=== PATIENT | female | born 1985 | race Caucasian/White ===

== ENCOUNTER 2021-09-22 21:06 | Inpatient (IN) | payer OTHER, SELFPAY ==
[2021-09-22 21:35] VITALS: BMI 23.9
[2021-09-22 21:51] VITALS: BP 121/73; PULSE 79; RESP 16; TEMP 36.9; O2SAT 98
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
[2021-09-23] MEDS: acetaminophen 325 mg Tablet 650 MG PO (00:21)
[2021-09-23] MEDS: ondansetron 4 MG Tablet PO (00:21)
--- NOTE | 2021-09-23 01:26 | PC.NURSE ---
0000 Patient came to the nurses station and asked if she could try to reach her again. He is in [place] and she has an maryana on her cell phone to communicate with him. He had no idea what was going on or that she was admitted. This typewriter ribbon winder let her use her phone and she enterred in our number here at NPU. Within a few minutes the called on the main line and this typewriter ribbon winder allowed her to speak to him to let him know her situation. They spoke and she was okay after the call as far as letting him know. She did have complaints of a headache of a 6/10 and was nauseated. Tylenol and Zofran were given for symptoms at 0021. Patient is now resting quietly in her bed.
[2021-09-23] MEDS: ibuprofen 600 mg Tablet PO (03:02)
[2021-09-23] MEDS: hyDROXYzine 25 mg Capsule 50 MG PO (03:03)
--- NOTE | 2021-09-23 03:15 | PC.NURSE ---
Patient at the nurses station stating that she still has a headache 610 and is having trouble resting. She states she can't relax enough to sleep. Vistaril 50mg po given as it is too late for trazadone at this time in the morning.
[2021-09-23 06:00] VITALS: BP 122/80; PULSE 88; RESP 118; TEMP 36.8; O2SAT 97
[2021-09-23] MEDS: venlafaxine ER (24HR) 75 mg Capsule PO (08:47)
--- NOTE | 2021-09-23 08:48 | PC.NURSE ---
refused scheduled thiamine, folic acid, mtv
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
[2021-09-23 14:00] VITALS: RESP 18
[2021-09-23] MEDS: blistex lip oint 7 gm Tube 1 APPLIC TOPICAL (17:17)
[2021-09-23 20:28] VITALS: BP 108/72; PULSE 88; RESP 17; TEMP 36.6; O2SAT 95
[2021-09-24 06:00] VITALS: BP 100/67; PULSE 65; RESP 16; TEMP 36.6; O2SAT 98
[2021-09-24] MEDS: venlafaxine ER (24HR) 75 mg Capsule PO (08:57)
--- NOTE | 2021-09-24 08:57 | PC.NURSE ---
REFUSED SCHEDULED MTV, THIAMINE, FOLIC ACID
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
[2021-09-24 13:35] VITALS: BP 126/76; PULSE 81; RESP 16; TEMP 36.7; O2SAT 99
--- NOTE | 2021-09-24 15:31 | PC.SOCIAL ---
Patient did not attend group.
[2021-09-24 19:37] VITALS: BP 109/74; PULSE 92; RESP 17; TEMP 36.6; O2SAT 96
[2021-09-25 06:00] VITALS: BP 102/70; PULSE 70; RESP 18; TEMP 36.6; O2SAT 98
[2021-09-25] MEDS: ondansetron 4 MG Tablet PO (06:06)
--- NOTE | 2021-09-25 06:13 | PC.NURSE ---
0600 Patient is at the desk stating that she is nauseous. Zofran 4mg po given for nausea.
[2021-09-25] MEDS: BREXPIPRAZOLE 2 MG 2 EACH PO (10:16)
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
[2021-09-25 13:48] VITALS: BP 102/70; PULSE 70; RESP 18; TEMP 36.6; O2SAT 98
[2021-09-25 20:05] VITALS: BP 101/68; PULSE 74; RESP 18; TEMP 37.2; O2SAT 98
--- NOTE | 2021-09-25 20:30 | PC.NURSE ---
Patient C/O sores / rash breaking out on her face. Noted condition is worse today than assessment yesterday. Patient states mechelle areas itch as well. Orderes Hydrocortizone and triple ABX for condition. Also patient requesting Effervint for her partial denture, also ordered.
[2021-09-26] MEDS: ibuprofen 600 mg Tablet PO ×2 (00:02→13:24)
[2021-09-26] MEDS: hyDROXYzine 25 mg Capsule 50 MG PO (00:03)
[2021-09-26] MEDS: efferdent effervescent 1 EACH DENTAL ×2 (00:03→17:44)
[2021-09-26] MEDS: neomycin-poly-bacitracin oint 28 gm 1 APPLIC TOPICAL (00:10)
[2021-09-26 06:00] VITALS: RESP 19
[2021-09-26] MEDS: BREXPIPRAZOLE 2 MG 2 EACH PO (09:56)
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
[2021-09-26 14:00] VITALS: BP 109/74; PULSE 76; RESP 16; TEMP 36.5; O2SAT 100
[2021-09-26] MEDS: blistex lip oint 7 gm Tube 1 APPLIC TOPICAL (17:44)
[2021-09-26 20:13] VITALS: RESP 17
[2021-09-26] MEDS: hydrocortisone 1% cream 28 gm 1 APPLIC TOPICAL (22:33)
[2021-09-27] MEDS: trazodone 50 mg Tablet PO (01:30)
--- NOTE | 2021-09-27 02:33 | PC.NURSE ---
PRN ADMIN: Patient c/o of trouble sleeping, requested PRN Trazodone, given as ordered with noted effectiveness.
[2021-09-27 06:00] VITALS: RESP 17
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
[2021-09-27] MEDS: BREXPIPRAZOLE 2 MG 2 EACH PO (10:08)
--- NOTE | 2021-09-27 13:50 | PC.SOCIAL ---
Patient did not attend group.
[2021-09-27 14:00] VITALS: BP 92/59; PULSE 65; RESP 17; TEMP 36.3; O2SAT 99
[2021-09-27 20:26] VITALS: BP 100/64; PULSE 64; RESP 16; TEMP 36.7; O2SAT 98
[2021-09-27] MEDS: ondansetron 4 MG Tablet PO (21:33)
[2021-09-28] MEDS: ibuprofen 600 mg Tablet PO (00:32)
[2021-09-28] MEDS: guaiFENesin-dextromethorphan UDC 10 mL PO (00:32)
[2021-09-28] MEDS: trazodone 50 mg Tablet PO (00:38)
[2021-09-28 06:00] VITALS: RESP 16
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
[2021-09-28] MEDS: thiamine 100 mg Tablet PO (08:06)
[2021-09-28] MEDS: multivitamin therapeutic Tablet 1 TAB PO (08:06)
[2021-09-28] MEDS: folic acid 1 mg Tablet PO (08:06)
[2021-09-28 08:11] VITALS: BP 100/64; PULSE 64; RESP 16; TEMP 36.7; O2SAT 98
[2021-09-28] MEDS: BREXPIPRAZOLE 2 MG 2 EACH PO (09:06)
== END 2021-09-28 10:16 | disposition home or self-care (01) | DRG 881 ==
PROVIDERS: Admitting Provider Psychiatry & Neurology Psychiatry; Visit Provider Psychiatry & Neurology Psychiatry
DX: F32.A Depression, unspecified (principal); R45.851 Suicidal ideations; F10.10 Alcohol abuse, uncomplicated; F43.10 Post-traumatic stress disorder, unspecified
CPT/HCPCS: 97150; 97165; Q0162